=== PATIENT | male | born 1955 | race Caucasian/White ===

== ENCOUNTER 2021-06-23 12:22 | Inpatient (IN) | payer MEDICARE, BC ==
[~2021-06-23] VITALS: Ht 188 cm; Wt 144.6 kg
[2021-06-23] MEDS ORDERED: aspirin 81mg tab.chew PO ONE (12:30)
[2021-06-23 13:11] LABS: BASOPHILS % (AUTO) 0.6 % (0-1); EOSINOPHILS # (AUTO) 0.1 X10'3 (0-0.9); EOSINOPHILS % (AUTO) 1.9 % (0-6); HEMATOCRIT 46.6 % (42.0-52.0); HEMOGLOBIN 15.4 g/dl (14.0-17.9); LYMPHOCYTES # (AUTO) 2.2 X10'3 (1.1-4.8); LYMPHOCYTES % (AUTO) 28.6 % (21-51); MEAN CORPUSCULAR HEMOGLOBIN 28.6 PG (27.0-31.0); MEAN CORPUSCULAR HGB CONC 32.9 g/dL (33.0-36.5); MEAN CORPUSCULAR VOLUME 86.7 FL (78-98); MEAN PLATELET VOLUME 8.3 FL (7.4-10.4); MONOCYTES # (AUTO) 0.5 X10'3 (0-0.9); MONOCYTES % (AUTO) 6.9 % (2-12); NEUTROPHILS # (AUTO) 4.8 X10'3 (1.8-7.7); PLATELET COUNT 222 X10'3 (140-440); RED BLOOD COUNT 5.37 X10'6 (4.70-6.10); RED CELL DISTRIBUTION WIDTH 14.4 % (11.5-14.5); WHITE BLOOD COUNT 7.8 X10'3 (4.5-11.0)
[2021-06-23 13:27] LABS: ALANINE AMINOTRANSFERASE 41 U/L (12-78); ALBUMIN 3.9 G/DL (3.4-5.0); ALBUMIN/GLOBULIN RATIO 0.9 (1.1-1.5); ALKALINE PHOSPHATASE 65 IU/L (46-116); ANION GAP 9 (8-16); ASPARTATE AMINO TRANSFERASE 19 U/L (10-37); BILIRUBIN,TOTAL 0.4 MG/DL (0.1-1.0); BLOOD UREA NITROGEN 21 MG/DL (7-18); BUN/CREATININE RATIO 19.1 (5.4-32.0); CALCIUM 8.9 MG/DL (8.5-10.1); CHLORIDE 107 MMOL/L (99-107); GLUCOSE 105 MG/DL (70-104); SODIUM 144 MMOL/L (135-145); TOTAL CARBON DIOXIDE 28.3 MMOL/L (24-32); TOTAL PROTEIN 8.2 G/DL (6.4-8.2); eGFR 67 ML/MIN
[2021-06-23 13:28] LABS: PARTIAL THROMBOPLASTIN TIME 27 SECONDS (22-32)
[2021-06-23 13:36] LABS: MAGNESIUM 2.4 MG/DL (1.5-2.4)
[2021-06-23 16:09] LABS: D-DIMER 1.19 MG/L FEU (0-0.50)
[2021-06-23] MEDS ORDERED: iohexol 350MG/ML 100ml bottle IV ONE (16:42)
[2021-06-23] MEDS ORDERED: nitroGLYCERIN 0.4mg SUBLingual tab SL PRN (18:25)
[2021-06-23] MEDS ORDERED: metoprolol tartrate 1mg/ml inj IV PRN (18:25)
[2021-06-23] MEDS ORDERED: regadenoson 0.4mg/5ml syringe IV PRN (18:25)
[2021-06-23] MEDS ORDERED: acetaminophen 325mg tablet PO PRN (18:25)
[2021-06-23] MEDS ORDERED: morphine 2 MG/ML inj. syringe IV PRN ×2 (18:25)
[2021-06-23] MEDS ORDERED: magnesium hydroxide 30ml (MOM) UD suspension PO PRN (18:25)
[2021-06-23] MEDS ORDERED: aminophylline 250mg/10ml inj. IV PRN (18:25)
[2021-06-23] MEDS ORDERED: mag hydrox/Alum hydrox/simeth 30ml oral suspension PO PRN (18:25)
[2021-06-23] MEDS ORDERED: ondansetron/PF 4mg/2ml inj IV PRN (18:25)
[2021-06-23] MEDS ORDERED: furosemide 10 MG/1 ML 10ml inj IV ONE (18:30)
[2021-06-23] MEDS: docusate sod 100mg capsule PO SCH (18:56)
[2021-06-23] MEDS ORDERED: CHOL500050 PO (19:11)
[2021-06-23] MEDS ORDERED: MONT-40 PO (19:11)
[2021-06-23] MEDS ORDERED: CETI-194 PO (19:11)
[2021-06-23] MEDS ORDERED: IRBE1TAB31 PO (19:11)
[2021-06-23] MEDS ORDERED: LEVO112T5 PO (19:11)
[2021-06-23] MEDS ORDERED: METO-395 PO (19:11)
[2021-06-23] MEDS ORDERED: ACET-1017 PO (19:11)
[2021-06-23] MEDS ORDERED: ASPI-1265 PO (19:11)
[2021-06-23 19:19] LABS: LACTATE DEHYDROGENASE 136 U/L (85-227)
[2021-06-23] MEDS: acetaminophen 325mg tablet PO PRN (23:00)
[2021-06-24] VITALS (11 sets, daily range): BP systolic 116–146; BP diastolic 57–77
[2021-06-24 05:35] LABS: BASOPHILS % (AUTO) 0.5 % (0-1); EOSINOPHILS # (AUTO) 0.2 X10'3 (0-0.9); EOSINOPHILS % (AUTO) 1.9 % (0-6); HEMATOCRIT 45.3 % (42.0-52.0); HEMOGLOBIN 14.9 g/dl (14.0-17.9); LYMPHOCYTES # (AUTO) 1.9 X10'3 (1.1-4.8); LYMPHOCYTES % (AUTO) 22.3 % (21-51); MEAN CORPUSCULAR HEMOGLOBIN 28.7 PG (27.0-31.0); MEAN CORPUSCULAR HGB CONC 32.9 g/dL (33.0-36.5); MEAN CORPUSCULAR VOLUME 87.2 FL (78-98); MEAN PLATELET VOLUME 8.7 FL (7.4-10.4); MONOCYTES # (AUTO) 0.7 X10'3 (0-0.9); NEUTROPHILS # (AUTO) 5.8 X10'3 (1.8-7.7); NEUTROPHILS % (AUTO) 67.3 % (42-75); PLATELET COUNT 202 X10'3 (140-440); RED BLOOD COUNT 5.19 X10'6 (4.70-6.10); RED CELL DISTRIBUTION WIDTH 14.2 % (11.5-14.5); WHITE BLOOD COUNT 8.6 X10'3 (4.5-11.0)
[2021-06-24 05:44] LABS: ALBUMIN 3.5 G/DL (3.4-5.0); ANION GAP 6 (8-16); BLOOD UREA NITROGEN 27 MG/DL (7-18); BUN/CREATININE RATIO 26.5 (5.4-32.0); CHLORIDE 108 MMOL/L (99-107); CREATININE 1.02 MG/DL (0.60-1.10); GLUCOSE 101 MG/DL (70-104); POTASSIUM 3.7 MMOL/L (3.5-5.1); SODIUM 145 MMOL/L (135-145); TOTAL CARBON DIOXIDE 30.9 MMOL/L (24-32); eGFR 74 ML/MIN
[2021-06-24] MEDS: nitroGLYCERIN 0.4mg SUBLingual tab SL PRN ×3 (06:28→07:12)
[2021-06-24] MEDS: aspirin 81mg, enteric-coated 1 TAB TABLET.DR PO SCH (10:38)
[2021-06-24] MEDS: docusate sod 100mg capsule PO SCH ×2 (10:38→19:20)
[2021-06-24] MEDS: lisinopril 10 MG tablet PO SCH (10:39)
[2021-06-24] MEDS ORDERED: furosemide 40mg/4ml inj IV ONE (11:00)
[2021-06-24] MEDS ORDERED: CETI10TA15 PO (13:13)
[2021-06-24] MEDS ORDERED: ASPI-1265 PO (13:13)
[2021-06-24] MEDS ORDERED: CHOL500050 PO (13:13)
[2021-06-24] MEDS: acetaminophen 325mg tablet PO PRN (14:41)
--- NOTE | 2021-06-24 18:10 | NUR ---
Patient in room PCU 3013. I have received report from BISHOP Bauman and had the opportunity to ask questions and assume patient care.
[2021-06-24 18:13] LABS: D-DIMER 0.82 MG/L FEU (0-0.50)
[2021-06-24 18:16] LABS: C-REACTIVE PROTEIN 0.44 MG/DL (0.0-0.5)
[2021-06-24] MEDS: furosemide 40mg/4ml inj IV SCH (19:20)
--- NOTE | 2021-06-24 22:00 | NUR ---
Patient refused vital signs to be taken.
[2021-06-25] VITALS (11 sets, daily range): BP systolic 123–134; BP diastolic 62–78
--- NOTE | 2021-06-25 06:17 | NUR ---
Problems reprioritized. Patient report given, questions answered & plan of care reviewed with BISHOP Nunez.
--- NOTE | 2021-06-25 06:29 | NUR ---
Patient in room U 3013. I have received report from Tamy ALAS and had the opportunity to ask questions and assume patient care. Patient resting in bed reading a book. In no acute distress.
[2021-06-25 06:48] LABS: BASOPHILS % (AUTO) 0.5 % (0-1); EOSINOPHILS # (AUTO) 0.1 X10'3 (0-0.9); EOSINOPHILS % (AUTO) 1.6 % (0-6); HEMATOCRIT 46.9 % (42.0-52.0); HEMOGLOBIN 15.5 g/dl (14.0-17.9); LYMPHOCYTES # (AUTO) 1.7 X10'3 (1.1-4.8); LYMPHOCYTES % (AUTO) 23.3 % (21-51); MEAN CORPUSCULAR HEMOGLOBIN 28.8 PG (27.0-31.0); MEAN CORPUSCULAR VOLUME 87.3 FL (78-98); MEAN PLATELET VOLUME 8.4 FL (7.4-10.4); MONOCYTES # (AUTO) 0.5 X10'3 (0-0.9); MONOCYTES % (AUTO) 6.8 % (2-12); NEUTROPHILS # (AUTO) 4.9 X10'3 (1.8-7.7); NEUTROPHILS % (AUTO) 67.8 % (42-75); PLATELET COUNT 217 X10'3 (140-440); RED BLOOD COUNT 5.37 X10'6 (4.70-6.10); RED CELL DISTRIBUTION WIDTH 14.6 % (11.5-14.5); WHITE BLOOD COUNT 7.3 X10'3 (4.5-11.0)
[2021-06-25 07:00] LABS: ALBUMIN 3.6 G/DL (3.4-5.0); ANION GAP 9 (8-16); BLOOD UREA NITROGEN 24 MG/DL (7-18); BUN/CREATININE RATIO 23.3 (5.4-32.0); CHLORIDE 107 MMOL/L (99-107); CHOL/HDL RATIO 4.2 (0.00-4.99); CHOLESTEROL 159 MG/DL (0-200); CREATININE 1.03 MG/DL (0.60-1.10); GLUCOSE 115 MG/DL (70-104); HDL CHOLESTEROL 38 MG/DL (35-60); LDL CHOLESTEROL 101 MG/DL (50-100); POTASSIUM 3.7 MMOL/L (3.5-5.1); SODIUM 143 MMOL/L (135-145); TOTAL CARBON DIOXIDE 26.7 MMOL/L (24-32); TRIGLYCERIDES 83 MG/DL (20-135); eGFR 73 ML/MIN
[2021-06-25] MEDS ORDERED: verapamil 2.5 mg/ml inj IV ONE (07:21)
[2021-06-25] MEDS ORDERED: nitroGLYCERIN-Tridil 50MG/D5W 250 ML IV ONE (07:21)
[2021-06-25] MEDS ORDERED: fentaNYL/PF 50MCG/1 ML 2ML syringe ONE (07:22)
[2021-06-25] MEDS ORDERED: iohexol 350MG/ML 100ml bottle IV ONE ×3 (07:22→08:32)
[2021-06-25] MEDS ORDERED: midazolam 1 mg/ML 2ml injection ONE ×2 (07:22→08:24)
[2021-06-25] MEDS ORDERED: LIDOcaine 1% (10mg/ml)w/preservative injection 20ml MDV ONE (07:22)
[2021-06-25] MEDS ORDERED: heparin 1,000unit/ml 10ml vial 10 ML ONE (07:22)
[2021-06-25] MEDS ORDERED: cholecalciferol (vitamin D3) 1,000 unit (25mcg) tablet PO SCH (08:00)
[2021-06-25] MEDS ORDERED: levoTHYROXINE 112mcg tablet PO SCH (08:00)
[2021-06-25] MEDS ORDERED: cetirizine 10mg tablet PO SCH (08:00)
[2021-06-25] MEDS ORDERED: metoprolol succinate 25mg (24-HOUR) SR. Tablet PO SCH (08:00)
[2021-06-25] MEDS ORDERED: aspirin 81mg tab.chew PO SCH (08:00)
[2021-06-25] MEDS ORDERED: ticagrelor 90mg tablet ONE (08:39)
[2021-06-25] MEDS: furosemide 40mg/4ml inj IV SCH (09:27)
[2021-06-25] MEDS: docusate sod 100mg capsule PO SCH (09:28)
[2021-06-25] MEDS: aspirin 81mg, enteric-coated 1 TAB TABLET.DR PO SCH (09:28)
[2021-06-25] MEDS ORDERED: ATOR10TA87 PO (09:29)
[2021-06-25] MEDS ORDERED: FURO40TA4 PO (09:29)
[2021-06-25] MEDS: lisinopril 10 MG tablet PO SCH (09:29)
[2021-06-25] MEDS ORDERED: OXAZEpam 15mg capsule PO PRN (09:30)
[2021-06-25] MEDS ORDERED: ondansetron/PF 4mg/2ml inj IV PRN (09:30)
[2021-06-25] MEDS ORDERED: proCHLORperazine 10 MG/2 ml inj IV PRN (09:30)
[2021-06-25] MEDS ORDERED: TICA90TA PO (10:01)
--- NOTE | 2021-06-25 12:58 | NUR ---
Patient walked 300 ft with no difficulties. No SOB. o2 stayed above 95% and HR did not go above 100. Patient wrist site is CDI no bruising, no hematoma, pulse +2 in RUE, hand warm, cap refill brisk.
--- NOTE | 2021-06-25 14:05 | NUR ---
RX called into [facility] on [address].
--- NOTE | 2021-06-25 14:49 | NUR ---
Pt DC to home and picked him up. PIV x2 were removed with cannula intact. [facility] [address] DC instructions and warning s/s were reviewed with patient and and they verbalized understanding. Radial site had pressure band removed . The site is CDI, sensation is intact, cap refill brisk , radial pulse +2, hand warm , no hematoma or bruising at cath site. Patient walked 900 ft no SOB or significant increase in HR. Patient alert, oriented, and appropriate at time of DC.
[2021-06-25] MEDS ORDERED: ticagrelor 90mg tablet PO SCH (20:00)
== END 2021-06-25 14:23 | disposition home or self-care (01) | DRG 247 ==
LOC: ER 12:22 → ED HOLD 18:22 → UNDOADMIN 18:26 → ED HOLD 18:26 → EDBEDREQ 06-24 12:40 → PCU 3S 06-24 13:49 → ED HOLD 06-24 13:49 → UNDODISIN 06-25 14:23
PROVIDERS: ADMIT Internal Medicine; ATTEND Internal Medicine
PROC: B32T1ZZ Computerized Tomography (CT Scan) of Left Pulmonary Artery using Low Osmolar Contrast (ICD-10-PCS; 2021-06-23)
PROC: B3201ZZ Computerized Tomography (CT Scan) of Thoracic Aorta using Low Osmolar Contrast (ICD-10-PCS; 2021-06-23)
PROC: B32S1ZZ Computerized Tomography (CT Scan) of Right Pulmonary Artery using Low Osmolar Contrast (ICD-10-PCS; 2021-06-23)
PROC: 4A02XM4 Measurement of Cardiac Total Activity, External Approach (ICD-10-PCS; 2021-06-23)
PROC: 3E073KZ Introduction of Other Diagnostic Substance into Coronary Artery, Percutaneous Approach (ICD-10-PCS; 2021-06-23)
PROC: 4A023N7 Measurement of Cardiac Sampling and Pressure, Left Heart, Percutaneous Approach (ICD-10-PCS; principal; 2021-06-25)
PROC: 027135Z Dilation of Coronary Artery, Two Arteries with Two Drug-eluting Intraluminal Devices, Percutaneous Approach (ICD-10-PCS; 2021-06-25)
PROC: B2111ZZ Fluoroscopy of Multiple Coronary Arteries using Low Osmolar Contrast (ICD-10-PCS; 2021-06-25)
PROC: B2151ZZ Fluoroscopy of Left Heart using Low Osmolar Contrast (ICD-10-PCS; 2021-06-25)
DX: I21.4 Non-ST elevation (NSTEMI) myocardial infarction (principal); Z68.41 Body mass index [BMI] 40.0-44.9, adult; E03.9 Hypothyroidism, unspecified; E78.5 Hyperlipidemia, unspecified; I27.81 Cor pulmonale (chronic); Z20.822 Contact with and (suspected) exposure to COVID-19; R94.39 Abnormal result of other cardiovascular function study; E66.01 Morbid (severe) obesity due to excess calories; G47.33 Obstructive sleep apnea (adult) (pediatric); I10 Essential (primary) hypertension; Z79.02 Long term (current) use of antithrombotics/antiplatelets; Z79.82 Long term (current) use of aspirin; Z79.899 Other long term (current) drug therapy
CPT/HCPCS: 93306; 93458; 99285; C9600; C9601; 36415; 71045; 71275; 78452; 80048; 80053; 80061; 83615; 83735; 83880; 84145; 84484; 85025; 85379; 85610; 85730; 86140; 87635; 93005; 93017; 99152; 99153; A4620; A5120; A9500; C1725; C1751; C1769; C1874; C1894; G0378; J0280; J1644; J1940; J2001; J2250; J2785; J3010; J3490; Q9967